=== PATIENT | male | born 1980 | race Asian ===

== ENCOUNTER 2016-10-08 20:06 | Emergency (ER) | payer OTHER ==
[~2016-10-08] VITALS: Ht 172.7 cm; Wt 120.2 kg
[~2016-10-08 20:06] MED LIST: ACID REDUCER150 MG OR; HYDR25TA60 PO; OMEPRAZOLE20 M2 OR; TRIA37.541 PO; WAL-PROFEN200 M1 OR
[2016-10-08 20:43] LABS: PLATELET COUNT 199 K/uL (142-355)
[2016-10-08 21:41] VITALS: BP 158/88; TEMP 99.4
== END 2016-10-08 21:42 | disposition home or self-care (01) ==
LOC: ED 20:06
PROVIDERS: Family Medicine
DX: K21.9 Gastro-esophageal reflux disease without esophagitis (principal); K29.70 Gastritis, unspecified, without bleeding; B96.81 Helicobacter pylori [H. pylori] as the cause of diseases classified elsewhere; B34.9 Viral infection, unspecified; R10.13 Epigastric pain
CPT/HCPCS: 85027; 86318; 99283